=== PATIENT | female | born 1955 | race Two or more races ===

== ENCOUNTER 2024-01-19 13:48 | Outpatient (REF) | payer MEDICARE, SELFPAY ==
[2024-01-19 16:24] LABS: TSH reflex Free T4 1.21 uIU/mL (0.32-4.0)
[2024-01-19 16:43] LABS: Folate 12.1 ng/mL (> or = 4.0); Vitamin B12 694 pg/mL (200-900)
== END 2024-01-19 13:49 | disposition home or self-care (01) ==
LOC: HO.LAB 13:48
PROVIDERS: PCP Physician Assistant; Visit Provider Psychiatry & Neurology Neurology
DX: G31.84 Mild cognitive impairment of uncertain or unknown etiology (principal)
CPT/HCPCS: 36415; 82607; 82746; 84443